=== PATIENT | male | born 1965 ===

== ENCOUNTER 2019-01-17 07:18 | Emergency (ER) | payer BC ==
[2019-01-17 07:35] VITALS: BP 120/74
--- NOTE | 2019-01-17 08:21 | UC ---
Lower Extremity/Ankle HPI - HPI Summary HPI Summary: 1 WEEK OF WORSENING PAIN AND REDNESS OF HIS RIGHT GREAT TOE. HAS HAD GOUT IN THE PAST AND STATES THIS FEELS THE SAME. HE DENIES ANY TRAUMA. - History of Current Complaint Chief Complaint: UCLowerExtremity Stated Complaint: RIGHT BIG TOE COMPLAINT Time Seen by Provider: 01/17/19 07:50 Hx Obtained From: Patient, Family/Housing Quality Standard Inspector - Onset/Duration: Gradual Onset, Lasting Days, Still Present Severity Initially: Moderate Severity Currently: Moderate Pain Intensity: 8 Pain Scale Used: 0-10 Numeric Aggravating Factor(s): Standing, Ambulation Alleviating Factor(s): Rest, Elevation Able to Bear Weight: Yes - WITH PAIN - Allergies/Home Medications Allergies/Adverse Reactions: Allergies Allergy/AdvReac Type Severity Reaction Status Date / Time No Known Allergies Allergy Verified 11/20/18 08:10 Home Medications: Home Medications Acetaminophen [Tylenol] 650 mg PO BEDTIME 01/17/19 [History Confirmed 01/17/19] Naltrexone TAB* 50 mg PO DAILY 01/17/19 [History Confirmed 01/17/19] Pramipexole TAB* [Mirapex TAB*] 0.5 mg PO BEDTIME 01/17/19 [History Confirmed ] traZODone TAB* [Desyrel TAB*] 50 mg PO BEDTIME 01/17/19 [History Confirmed 01/17] PMH/Surg Hx/FS Hx/Imm Hx - Additional Past Medical History Additional PMH: MULTIPLE SCLEROSIS, GOUT LEFT THUMB, BULGING DISKS Endocrine History: Hypothyroidism - Surgical History Surgical History: Yes Surgery Procedure, Year, and Place: KNEE SURGERY - Family History Known Family History: Positive: None - Social History Alcohol Use: Rare Alcohol Amount: 3 drinks per week Substance Use Type: None Smoking Status (MU): Former Smoker Have You Smoked in the Last Year: No When Did the Patient Quit Smoking/Using Tobacco: 1980s Review of Systems All Other Systems Reviewed And Are Negative: Yes Constitutional: Positive: Negative Skin: Positive: Other - ERYTHEMA RIGHT FOOT Respiratory: Positive: Negative Cardiovascular: Positive: Negative Gastrointestinal: Positive: Negative Musculoskeletal: Positive: Arthralgia, Decreased ROM, Edema Physical Exam Triage Information Reviewed: Yes Appearance: Well-Appearing, No Pain Distress, Well-Nourished Vital Signs: Initial Vital Signs Temp 97.6 F 01/17/19 07:32 Pulse 67 01/17/19 07:32 Resp 16 01/17/19 07:32 BP 120/74 01/17/19 07:32 Pulse Ox 100 01/17/19 07:32 Vital Signs Reviewed: Yes Eyes: Positive: Conjunctiva Clear ENT: Positive: Hearing grossly normal Neck: Positive: Supple Respiratory: Positive: No respiratory distress, No accessory muscle use Cardiovascular: Positive: Pulses Normal Abdomen Description: Positive: Soft Musculoskeletal: Positive: ROM Limited @ - RIGHT GREAT TOE, Edema @ - MID TO DISTAL RIGHT FOOT, Other: - EXQUISITELY TENDER RIGHT GREAT TOE AND RIGHT 1ST MTP JOINT Neurological: Positive: Alert Psychological: Positive: Normal Response To Family, Age Appropriate Behavior Skin: Positive: Other - ERYTHEMA RIGHT FOREFOOT Lower Extremity Course/Dx - Course Course Of Treatment: PATIENT'S PRESENTATION IS CONSISTENT WITH GOUT. LOWER PROBABILITY OF CELLULITIS OR BONY INJURY BASED ON EXAM AND HISTORY. PATIENT HAS DECLINED X- RAY TODAY WHICH I THINK IS REASONABLE. STATES PREDNISONE WORKED WELL FOR HIM IN THE PAST SO WILL USE THIS AGAIN TODAY. ADVISED PATIENT FOLLOW-UP WITH HIS PCP AFTER HE HAS BEEN SYMPTOM FREE FOR A COUPLE OF WEEKS FOR FURTHER EVALUATION OF HIS URIC ACID LEVELS. - Differential Dx/Diagnosis Provider Diagnosis: Gouty arthritis of right great toe Discharge ED - Sign-Out/Discharge Documenting (check all that apply): Patient Departure All imaging exams completed and their final reports reviewed: No Studies - Discharge Plan Condition: Stable Disposition: HOME Prescriptions: predniSONE TAB* [Deltasone TAB*] 50 mg PO DAILY #5 tab Patient Education Materials: Low Purine Diet (ED), Gout (ED) Referrals: Kenyon Acosta MD [Primary Care Provider] - 2 Weeks Additional Instructions: YOUR PRESENTATION IS CONSISTENT WITH GOUT. TAKE THE PREDNISONE ONCE DAILY FOR 5 DAYS. YOU MAY APPLY ICE AND ELEVATE YOUR FOOT FOR SYMPTOM RELIEF. WHEN YOU HAVE BEEN SYMPTOM FREE FOR AT LEAST 2 WEEKS FOLLOW-UP WITH YOUR PCP FOR LAB WORK TO EVALUATE YOUR URIC ACID LEVELS. YOU MAY BENEFIT FROM DAILY PROPHYLACTIC TREATMENT. BE AWARE THAT BOTH YOUR GILENYA AND PREDNISONE ARE IMMUNOSUPPRESSIVE. SEEK FOLLOW-UP IF YOU DEVELOP FEVERS OR ANY OTHER CONCERNING SYMPTOMS. - Billing Disposition and Condition Condition: STABLE Disposition: Home
== END 2019-01-17 08:19 | disposition home or self-care (01) ==
LOC: UCCORT 07:18
DX: M10.9 Gout, unspecified (principal); G35 Multiple sclerosis; Z87.891 Personal history of nicotine dependence
CPT/HCPCS: 99212; G0463